=== PATIENT | female | born 1955 | race Two or more races ===

== ENCOUNTER 2016-04-10 15:55 | Emergency (ER) | payer MEDICAID ==
[~2016-04-10] VITALS: Ht 165.1 cm; Wt 68.5 kg
[2016-04-10 16:08] VITALS: BP 95/51
[2016-04-10 16:38] LABS: Basophils # (auto) 0 uL; Basophils % (auto) 0.2 % (0.0-2.0); Eosinophils # (auto) 0.1 uL; Hematocrit 40.2 % (36.0-46.0); Hemoglobin 13.6 g/dL (12.2-16.2); Lymphocytes # (auto) 1.4 uL; Lymphocytes % (auto) 14.4 % (10.0-50.0); Mean Corpuscular Hemoglobin 31.1 pg (28.0-32.0); Mean Corpuscular Hgb Conc. 33.7 g/dL (32.0-36.0); Mean Corpuscular Volume 92.2 fL (80.0-100.0); Mean Platelet Volume 8.6 fL (7.4-10.4); Monocytes # (auto) 0.8 uL; Monocytes % (auto) 8.7 % (0.0-12.0); Neutrophils # (auto) 7.3 uL; Neutrophils % (auto) 75.7 % (37.0-80.0); Platelet Count (auto) 324 10^3/uL (140-450); Red Cell Distribution Width 17.4 % (11.6-16.0); White Blood Cell 9.7 10^3/uL (4.4-10.8)
[2016-04-10 16:59] LABS: Albumin 3.2 g/dL (3.4-5.0); BUN/Creatinine Ratio 17.1; Calcium 8.3 mg/dL (8.5-10.1); Potassium 3.6 mmol/L (3.5-5.1)
[2016-04-10 17:02] LABS: Bilirubin, Total 0.6 mg/dL (0.2-1.0); Total Protein 7.3 g/dL (6.4-8.2)
== END 2016-04-10 21:32 | disposition left against medical advice (07) ==
LOC: ER 16:11
DX: M79.89 Other specified soft tissue disorders (principal); Z53.21 Procedure and treatment not carried out due to patient leaving prior to being seen by health care provider
CPT/HCPCS: 36415; 80053; 83605; 85025; 87040

== ENCOUNTER 2019-11-18 14:17 | Inpatient (IN) | payer MEDICAID, OTHER ==
[~2019-11-18] VITALS: Ht 165.1 cm; Wt 73.0 kg
[2019-11-18] MEDS ORDERED: MORPHINE SULFATE 4 MG/ML SYR/VIAL IV ONE (14:45)
[2019-11-18] MEDS ORDERED: ACETAMINOPHEN 500 MG TAB PO ONE (14:45)
[2019-11-18] MEDS ORDERED: ACETAMINOPHEN 325 MG TAB PO ONE (14:45)
[2019-11-18] MEDS ORDERED: SODIUM CHLORIDE 0.9% 500 ML IV ONE (14:45)
[2019-11-18] MEDS ORDERED: ASCORBIC ACID 500 MG TAB PO ONE (14:45)
[2019-11-18] MEDS ORDERED: ZINC SULFATE 220mg CAP or TAB PO ONE (14:45)
[2019-11-18] MEDS ORDERED: ONDANSETRON HCL 4 MG/2 ML VIAL IV ONE ×2 (14:45)
[2019-11-18] MEDS ORDERED: AZITHROMYCIN 500MG/ 250ML 250 ML IV ONE (14:45)
[2019-11-18 15:30] LABS: Basophils # (auto) 0.1 10 ^3/uL (0-0.2); Basophils % (auto) 0.5 % (0.0-2.0); Eosinophils # (auto) 0 10 ^3/uL (0-0.8); Hematocrit 41.7 % (36.0-46.0); Hemoglobin 14.1 g/dL (12.2-16.2); Lymphocytes # (auto) 0.9 10 ^3/uL (0.4-5.4); Lymphocytes % (auto) 8.1 % (10.0-50.0); Mean Corpuscular Hemoglobin 32.6 pg (28.0-32.0); Mean Corpuscular Hgb Conc. 33.9 g/dL (32.0-36.0); Mean Corpuscular Volume 96.1 fL (80.0-100.0); Monocytes # (auto) 0.9 10 ^3/uL (0-1.3); Monocytes % (auto) 8.3 % (0.0-12.0); Neutrophils # (auto) 8.9 10 ^3/uL (1.6-8.6); Neutrophils % (auto) 83.1 % (37.0-80.0); Nucleated Red Blood Cells % 0.1 %; Platelet Count (auto) 155 10^3/uL (140-450); Red Blood Cells 4.34 10^6/uL (4.0-5.20); Red Cell Distribution Width 14.9 % (11.8-14.3); White Blood Cell 10.7 10^3/uL (4.4-10.8)
[2019-11-18 15:40] LABS: Albumin 3.7 g/dL (3.4-5.0); Anion Gap 8 (5-15); Blood Urea Nitrogen 14 mg/dL (7-18); Calcium 8.7 mg/dL (8.5-10.1); Carbon Dioxide 23 mmol/L (21-32); Chloride 103 mmol/L (98-107); Glucose 271 mg/dL (74-106); Magnesium 2.2 mg/dL (1.6-2.6); Sodium 134 mmol/L (136-145)
[2019-11-18 15:51] LABS: Alanine Aminotransferase 21 U/L (13-56); Alkaline Phosphatase 99 U/L (45-117); Aspartate Aminotransferase 14 U/L (15-37); BUN/Creatinine Ratio 17.7; Bilirubin, Total 0.5 mg/dL (0.2-1.0); GFR African American 94 mL/min; GFR Non-African American 78 mL/min; Lactate Dehydrogenase 233 U/L (84-246); Total Protein 7.8 g/dL (6.4-8.2)
[2019-11-18 17:06] LABS: Urine Bacteria NONE SEEN /hpf (None Seen); Urine Blood TRACE /uL (Negative); Urine Mucus FEW (None Seen); Urine Specific Gravity 1.017 (1.001-1.035); Urine WBC <1 /hpf (0 - 5)
[2019-11-18] MEDS ORDERED: NITROGLYCERIN 0.4 MG SL TAB SL PRN ×2 (18:00→22:30)
[2019-11-18] MEDS ORDERED: MORPHINE SULF INJ 2 MG/ML SYRINGE 1ML IV PRN ×2 (18:00→22:30)
[2019-11-18] MEDS ORDERED: FOLI1TAB6 PO (20:02)
[2019-11-18] MEDS ORDERED: CHOL500023 PO (20:02)
[2019-11-18] MEDS ORDERED: OMEG1CAP59 PO (20:02)
[2019-11-18] MEDS ORDERED: NORT25CA PO (20:02)
[2019-11-18] MEDS ORDERED: LORazepam 0.5 MG TAB PO PRN (22:30)
[2019-11-18] MEDS ORDERED: DEXTROSE (50%) 50ML SYRG IV PRN (22:30)
[2019-11-18] MEDS ORDERED: DOCUSATE SOD 100 MG CAP PO PRN (22:30)
[2019-11-18] MEDS ORDERED: SODIUM CHLORIDE 0.9% 1,000 ML IV SCH (22:30)
[2019-11-18] MEDS ORDERED: THIAMINE 100mg/ml INJ (200mg/2ml VIAL) IV ONE (22:30)
[2019-11-18] MEDS ORDERED: ONDANSETRON HCL 4 MG/2 ML VIAL IV PRN (22:30)
[2019-11-18] MEDS ORDERED: ACETAMINOPHEN 500 MG TAB PO PRN (22:30)
[2019-11-18] MEDS ORDERED: ALUM & MAG HYDROX-SIMETH LIQ(MAALOX) 30 ML PO PRN (22:30)
[2019-11-18] MEDS ORDERED: ACETAMINOPHEN 325 MG TAB PO PRN (22:30)
[2019-11-18] MEDS ORDERED: FOLIC ACID 1 MG TAB PO ONE (22:30)
[2019-11-18 23:05] LABS: Basophils # (auto) 0.1 10 ^3/uL (0-0.2); Basophils % (auto) 0.7 % (0.0-2.0); Eosinophils # (auto) 0 10 ^3/uL (0-0.8); Eosinophils % (auto) 0.1 % (0.0-7.0); Hematocrit 38.4 % (36.0-46.0); Hemoglobin 13.2 g/dL (12.2-16.2); Lymphocytes # (auto) 1.7 10 ^3/uL (0.4-5.4); Mean Corpuscular Hemoglobin 32.9 pg (28.0-32.0); Mean Corpuscular Hgb Conc. 34.5 g/dL (32.0-36.0); Mean Corpuscular Volume 95.4 fL (80.0-100.0); Monocytes % (auto) 10.8 % (0.0-12.0); Neutrophils # (auto) 6.3 10 ^3/uL (1.6-8.6); Neutrophils % (auto) 69.4 % (37.0-80.0); Platelet Count (auto) 206 10^3/uL (140-450); Red Blood Cells 4.02 10^6/uL (4.0-5.20); Red Cell Distribution Width 14.8 % (11.8-14.3); White Blood Cell 9.1 10^3/uL (4.4-10.8)
[2019-11-18] MEDS: MORPHINE SULF INJ 2 MG/ML SYRINGE 1ML IV PRN (23:05)
[2019-11-18 23:23] LABS: Albumin 3.1 g/dL (3.4-5.0); Calcium 8.1 mg/dL (8.5-10.1); Magnesium 2.1 mg/dL (1.6-2.6); Potassium 3.9 mmol/L (3.5-5.1)
[2019-11-18 23:29] LABS: Alcohol, Urine < 3.0 mg/dL (0-10); Amphetamine Screen, Urine NEGATIVE (NEGATIVE); Barbiturate Scree,Urine NEGATIVE (NEGATIVE); Benzodiazephine Screen, Urine NEGATIVE (NEGATIVE); Cannabinoid Screen, Urine NEGATIVE (NEGATIVE); Cocaine Screen, Urine NEGATIVE (NEGATIVE); Opiate Scree,Urine NEGATIVE (NEGATIVE); Phencyclidine Screen, Urine NEGATIVE (NEGATIVE)
[2019-11-18 23:31] LABS: BUN/Creatinine Ratio 13.9; Bilirubin, Total 0.5 mg/dL (0.2-1.0); CRP High Sensitivity 3.13 mg/dL (< 0.3); Total Protein 6.5 g/dL (6.4-8.2)
[2019-11-18 23:51] LABS: Cholesterol 152 mg/dL (< 200)
[2019-11-18 23:55] LABS: HDL Cholesterol 66 mg/dL (40-59); LDL Cholesterol 79 mg/dL (< 100); Triglycerides 57 mg/dL (< 150)
[2019-11-19] VITALS (7 sets, daily range): BP systolic 95–133; BP diastolic 55–76
[2019-11-19] MEDS ORDERED: ALBUTEROL SULF 2.5 MG/0.5ML(0.5%) NEB SOLN NEB PRN (02:45)
--- NOTE | 2019-11-19 04:05 | NUR ---
Telemetry admit from ER Patient admitted to Telemetry unit. Patient oriented to primary RN, unit, room, bed, and unit policies regarding patient care and visiting hours. Patient now on continuous telemetry monitoring, telemetry reading on arrival to unit is sinus rhythm. Patient , weighed by bedscale and encouraged to call if they need something. All questions and concerns addressed, patient verbalized understanding.
[2019-11-19] MEDS: MORPHINE SULF INJ 2 MG/ML SYRINGE 1ML IV PRN (04:19)
[2019-11-19] MEDS ORDERED: ALBUTEROL SULF HFA 90MCG INH 200DOSE IN SCH (06:00)
--- NOTE | 2019-11-19 06:07 | NUR ---
Respiratory note: PT ASSESSED FOR PRN TX HR 65, RR 18, POX 97% ON RA, BS ARE COARSE. NO SOB OR DISTRESS NOTED. PT WAS NOTIFY TO HAVE RN PAGE RT FOR MN TX.
[2019-11-19] MEDS: InsuLIN REG 1unit/0.01ml Soln (100units/ml) SC SCH ×4 (06:34→22:45)
[2019-11-19] MEDS: ACCU-CHEK COMFORT CURVE STRIP VI SCH ×4 (06:34→21:26)
--- NOTE | 2019-11-19 07:20 | NUR ---
End of Shift Note Endorsed care to dayshift RN. At this time patient has no s/s of distress or SOB
--- NOTE | 2019-11-19 07:25 | NUR ---
Opening Shift Note Assumed care of patient, awake and alert x 4. No S/S of distress/SOB. Respirations are even and non labored. Pain reported, medicated as ordered. Henriquez is patent and draining to gravity. Bed is in the lowest and locked position with side rails up x 2 and call light within reach. Instructed on POC and to call for assist PRN, will continue to monitor for changes Q1hr and PRN.
[2019-11-19 07:29] LABS: Basophils # (auto) 0 10 ^3/uL (0-0.2); Basophils % (auto) 0.5 % (0.0-2.0); Eosinophils # (auto) 0 10 ^3/uL (0-0.8); Eosinophils % (auto) 0.5 % (0.0-7.0); Hematocrit 37.8 % (36.0-46.0); Lymphocytes # (auto) 2.1 10 ^3/uL (0.4-5.4); Lymphocytes % (auto) 27.2 % (10.0-50.0); Mean Corpuscular Hemoglobin 32.9 pg (28.0-32.0); Mean Corpuscular Hgb Conc. 34.5 g/dL (32.0-36.0); Mean Corpuscular Volume 95.6 fL (80.0-100.0); Monocytes # (auto) 0.9 10 ^3/uL (0-1.3); Monocytes % (auto) 11.6 % (0.0-12.0); Neutrophils # (auto) 4.5 10 ^3/uL (1.6-8.6); Neutrophils % (auto) 60.2 % (37.0-80.0); Platelet Count (auto) 192 10^3/uL (140-450); Red Blood Cells 3.95 10^6/uL (4.0-5.20); Red Cell Distribution Width 15.1 % (11.8-14.3); White Blood Cell 7.6 10^3/uL (4.4-10.8)
[2019-11-19 07:39] LABS: Albumin 3.1 g/dL (3.4-5.0); Calcium 8.1 mg/dL (8.5-10.1); Potassium 3.6 mmol/L (3.5-5.1)
[2019-11-19 07:42] LABS: BUN/Creatinine Ratio 23.6; Bilirubin, Total 0.6 mg/dL (0.2-1.0); Total Protein 6.6 g/dL (6.4-8.2)
--- NOTE | 2019-11-19 08:38 | NUR ---
Page to hospitalist To notify of chest pain.
--- NOTE | 2019-11-19 08:41 | NUR ---
Received call from hospitalist New orders received.
[2019-11-19] MEDS: cefTRIAXone 1GM/50ML D5W 50 ML IV SCH (09:00)
[2019-11-19] MEDS: HYDROcodone-ACET 5/325MG TAB PO PRN ×3 (09:05→21:26)
[2019-11-19] MEDS: ASCORBIC ACID 1,000 MG TAB PO SCH (10:00)
[2019-11-19] MEDS: DexAMETHasone SOD PHOS 10MG/1ML VIAL INJ IV SCH (10:00)
[2019-11-19] MEDS ORDERED: CHOLECALCIFEROL (VITD3) 2,000 UNIT CAP PO SCH (10:00)
[2019-11-19] MEDS: ZINC SULFATE 220mg CAP or TAB PO SCH (10:00)
[2019-11-19] MEDS ORDERED: BUDESONIDE (INHALATION) 180 MCG IH IN SCH (10:00)
[2019-11-19] MEDS: THIAMINE 100mg/ml INJ (200mg/2ml VIAL) IV SCH (10:01)
[2019-11-19] MEDS: ENOXAPARIN SOD 40 MG/0.4 ML SYRINGE SC SCH (10:02)
[2019-11-19] MEDS: FOLIC ACID 1 MG TAB PO SCH (10:04)
[2019-11-19] MEDS: AZITHROMYCIN 500MG/ 250ML 250 ML IV SCH (10:50)
--- NOTE | 2019-11-19 11:19 | NUR ---
ELFEGO Mustafa at bedside Instructed patient on POC. Notified her of stress test and NPO at midnight and answered all questions.
--- NOTE | 2019-11-19 14:18 | NUR ---
Off unit to Nuc Med
--- NOTE | 2019-11-19 14:52 | NUR ---
Dr. Kenney at bedside Instructed patient on POC with RN to translate. Answered all questions. New orders placed.
[2019-11-19] MEDS: NORTRIPTYLINE HCL 10 MG CAP PO SCH (21:26)
[2019-11-19] MEDS: GABAPENTIN 300 MG CAP PO SCH (21:26)
[2019-11-20 05:00] VITALS: BP 114/66
[2019-11-20 05:48] LABS: Basophils # (auto) 0 10 ^3/uL (0-0.2); Basophils % (auto) 0.6 % (0.0-2.0); Eosinophils # (auto) 0 10 ^3/uL (0-0.8); Eosinophils % (auto) 0.5 % (0.0-7.0); Hematocrit 39.6 % (36.0-46.0); Hemoglobin 13.6 g/dL (12.2-16.2); Lymphocytes # (auto) 1.6 10 ^3/uL (0.4-5.4); Lymphocytes % (auto) 28.2 % (10.0-50.0); Mean Corpuscular Hemoglobin 32.6 pg (28.0-32.0); Mean Corpuscular Hgb Conc. 34.3 g/dL (32.0-36.0); Mean Corpuscular Volume 95.2 fL (80.0-100.0); Monocytes # (auto) 0.7 10 ^3/uL (0-1.3); Monocytes % (auto) 12.1 % (0.0-12.0); Neutrophils # (auto) 3.3 10 ^3/uL (1.6-8.6); Neutrophils % (auto) 58.6 % (37.0-80.0); Nucleated Red Blood Cells % 0.1 %; Platelet Count (auto) 211 10^3/uL (140-450); Red Blood Cells 4.16 10^6/uL (4.0-5.20); Red Cell Distribution Width 14.4 % (11.8-14.3); White Blood Cell 5.6 10^3/uL (4.4-10.8)
[2019-11-20] MEDS: GABAPENTIN 300 MG CAP PO SCH ×4 (06:00→21:50)
[2019-11-20 06:11] LABS: Anion Gap 3 (5-15); Blood Urea Nitrogen 14 mg/dL (7-18); Calcium 8.5 mg/dL (8.5-10.1); Carbon Dioxide 29 mmol/L (21-32); Chloride 106 mmol/L (98-107); Glucose 138 mg/dL (74-106); Potassium 3.8 mmol/L (3.5-5.1); Sodium 138 mmol/L (136-145)
[2019-11-20 06:18] LABS: BUN/Creatinine Ratio 22.6; GFR African American 124 mL/min; GFR Non-African American 103 mL/min
[2019-11-20] MEDS: InsuLIN REG 1unit/0.01ml Soln (100units/ml) SC SCH ×4 (06:38→22:08)
[2019-11-20] MEDS: ACCU-CHEK COMFORT CURVE STRIP VI SCH ×4 (06:38→21:52)
--- NOTE | 2019-11-20 07:16 | NUR ---
End of Shift Note Endorsed care to dayshift RN. At this time patient has no s/s of distress or SOB.
--- NOTE | 2019-11-20 07:30 | NUR ---
Opening Shift Note Assumed care of patient, patient in bed resting with eyes closed. Respirations are even and non labored on room air. No S/S of distress/SOB or pain. Bed is in the lowest/locked position with side rails up x 2 and call light within reach. Will Instruct on POC when awake and alert. Will continue to monitor for changes Q1hr and PRN.
[2019-11-20] MEDS ORDERED: ADENOSINE 59 MG in GIVE UN-DILUTED 0 ML IV STA (08:32)
[2019-11-20 09:00] VITALS: BP 129/72
[2019-11-20] MEDS: cefTRIAXone 1GM/50ML D5W 50 ML IV SCH (09:00)
--- NOTE | 2019-11-20 09:57 | NUR ---
Off unit to [facility] For stress test.
[2019-11-20] MEDS: ENOXAPARIN SOD 40 MG/0.4 ML SYRINGE SC SCH (10:00)
[2019-11-20] MEDS: ZINC SULFATE 220mg CAP or TAB PO SCH (10:00)
[2019-11-20] MEDS: DexAMETHasone SOD PHOS 10MG/1ML VIAL INJ IV SCH (10:00)
[2019-11-20] MEDS: ASCORBIC ACID 1,000 MG TAB PO SCH (10:00)
[2019-11-20] MEDS: AZITHROMYCIN 500MG/ 250ML 250 ML IV SCH (10:00)
[2019-11-20] MEDS: CHOLECALCIFEROL (VITD3) 1,000UNIT=25mCg TAB PO SCH (10:00)
[2019-11-20 13:00] VITALS: BP 111/84
[2019-11-20] MEDS: HYDROcodone-ACET 5/325MG TAB PO PRN ×2 (13:06→22:07)
[2019-11-20] MEDS: FOLIC ACID 1 MG TAB PO SCH (13:06)
[2019-11-20] MEDS: THIAMINE 100mg/ml INJ (200mg/2ml VIAL) IV SCH (13:06)
--- NOTE | 2019-11-20 13:13 | NUR ---
Dr. Kenney at bedside Assessed patient with RN to translate. Explained POC and answered all questions.
[2019-11-20 17:00] VITALS: BP 129/69
--- NOTE | 2019-11-20 19:07 | NUR ---
PT ASSESSED FOR PRN MED NEB TX. SPO2 97% ON RA, HR 70. PT DENIES ANY RESPIRATORY DISTRESS. NO TX INDICATED AT THIS TIME. WILL CONTINUE TO MONITOR.
--- NOTE | 2019-11-20 19:45 | NUR ---
Opening Shift Note Assumed care of patient, awake and alert x 4. No S/S of distress/SOB complain of pain. Henriquez intact flowing per gravity. Tele box matches all leads are in position. Bed lowered and locked side rails x 2 call light and bedside table are within reach. Instructed on POC and to call for assist PRN, will continue to monitor for changes Q1hr and PRN.
[2019-11-20] MEDS: NORTRIPTYLINE HCL 10 MG CAP PO SCH (21:51)
[2019-11-20 22:00] VITALS: BP 110/69
[2019-11-21 05:00] VITALS: BP 119/72
[2019-11-21 06:02] LABS: Calcium 8.4 mg/dL (8.5-10.1); Potassium 3.9 mmol/L (3.5-5.1)
[2019-11-21 06:05] LABS: BUN/Creatinine Ratio 20.6
[2019-11-21] MEDS: ACCU-CHEK COMFORT CURVE STRIP VI SCH ×4 (06:17→21:34)
[2019-11-21] MEDS: GABAPENTIN 300 MG CAP PO SCH ×3 (06:17→21:16)
[2019-11-21] MEDS: HYDROcodone-ACET 5/325MG TAB PO PRN ×2 (06:17→18:42)
[2019-11-21 06:19] LABS: Basophils # (auto) 0 10 ^3/uL (0-0.2); Basophils % (auto) 0.7 % (0.0-2.0); Eosinophils # (auto) 0 10 ^3/uL (0-0.8); Eosinophils % (auto) 0.8 % (0.0-7.0); Hematocrit 38.7 % (36.0-46.0); Lymphocytes # (auto) 1.4 10 ^3/uL (0.4-5.4); Lymphocytes % (auto) 25.8 % (10.0-50.0); Mean Corpuscular Hemoglobin 32.2 pg (28.0-32.0); Mean Corpuscular Hgb Conc. 33.7 g/dL (32.0-36.0); Mean Corpuscular Volume 95.5 fL (80.0-100.0); Monocytes # (auto) 0.7 10 ^3/uL (0-1.3); Monocytes % (auto) 12.5 % (0.0-12.0); Neutrophils # (auto) 3.2 10 ^3/uL (1.6-8.6); Neutrophils % (auto) 60.2 % (37.0-80.0); Platelet Count (auto) 197 10^3/uL (140-450); Red Blood Cells 4.06 10^6/uL (4.0-5.20); Red Cell Distribution Width 14.8 % (11.8-14.3); White Blood Cell 5.3 10^3/uL (4.4-10.8)
[2019-11-21] MEDS: InsuLIN REG 1unit/0.01ml Soln (100units/ml) SC SCH ×4 (06:19→21:51)
--- NOTE | 2019-11-21 07:30 | NUR ---
PT. ASSESSED FOR PRN. MN. TX., NO RESP. DISTRESS OR SOB NOTED. HR=70,RR=18,SP02=96% ON RA. BS. ARE CLEAR , PRN. TX. NOT INDICATED OR GIVE AT THIS TIME. PT. INSTRUCTED TO CALL IF NEEDED.
[2019-11-21 08:00] VITALS: BP 101/60
[2019-11-21 09:18] VITALS: BP 101/60
[2019-11-21] MEDS: THIAMINE 100mg/ml INJ (200mg/2ml VIAL) IV SCH (09:19)
[2019-11-21] MEDS: DexAMETHasone SOD PHOS 10MG/1ML VIAL INJ IV SCH (09:19)
[2019-11-21] MEDS: cefTRIAXone 1GM/50ML D5W 50 ML IV SCH (09:19)
[2019-11-21] MEDS: AZITHROMYCIN 500MG/ 250ML 250 ML IV SCH (09:19)
[2019-11-21] MEDS: ENOXAPARIN SOD 40 MG/0.4 ML SYRINGE SC SCH (09:20)
[2019-11-21] MEDS: ZINC SULFATE 220mg CAP or TAB PO SCH (09:20)
[2019-11-21] MEDS: CHOLECALCIFEROL (VITD3) 1,000UNIT=25mCg TAB PO SCH (09:20)
[2019-11-21] MEDS: FOLIC ACID 1 MG TAB PO SCH (09:20)
[2019-11-21] MEDS: ASCORBIC ACID 1,000 MG TAB PO SCH (10:00)
[2019-11-21 13:00] VITALS: BP 121/63
--- NOTE | 2019-11-21 14:33 | NUR ---
Nutrition Assessment Note please see attached link for complete assessment Est Energy needs BW 71 [id number] kcals (23-25 kcal/kgBW), Est Protein needs: 71-78 gms/day (1.0-1.1 gm/kgBW). Will continue to monitor and reassess prn. Addendum: 11/21/19 at [address] Amended: Links added.
[2019-11-21 17:25] VITALS: BP 112/70
--- NOTE | 2019-11-21 19:53 | NUR ---
Opening Shift Note Assumed care of patient, awake and alert. No S/S of distress/SOB or pain. Instructed on POC and to call for assist PRN, will continue to monitor for changes Q1hr and PRN.
[2019-11-21] MEDS: NORTRIPTYLINE HCL 10 MG CAP PO SCH (21:33)
[2019-11-21 22:00] VITALS: BP 117/66
[2019-11-22 05:00] VITALS: BP 124/86
[2019-11-22] MEDS: GABAPENTIN 300 MG CAP PO SCH ×2 (05:52→15:13)
[2019-11-22] MEDS: ACCU-CHEK COMFORT CURVE STRIP VI SCH ×2 (06:43→11:28)
[2019-11-22] MEDS: InsuLIN REG 1unit/0.01ml Soln (100units/ml) SC SCH ×2 (06:44→11:44)
[2019-11-22 06:53] LABS: Basophils # (auto) 0 10 ^3/uL (0-0.2); Basophils % (auto) 0.1 % (0.0-2.0); Eosinophils # (auto) 0 10 ^3/uL (0-0.8); Hematocrit 39.2 % (36.0-46.0); Hemoglobin 13.2 g/dL (12.2-16.2); Lymphocytes # (auto) 0.8 10 ^3/uL (0.4-5.4); Lymphocytes % (auto) 7.2 % (10.0-50.0); Mean Corpuscular Hemoglobin 31.9 pg (28.0-32.0); Mean Corpuscular Hgb Conc. 33.5 g/dL (32.0-36.0); Monocytes # (auto) 0.4 10 ^3/uL (0-1.3); Monocytes % (auto) 3.8 % (0.0-12.0); Neutrophils % (auto) 88.9 % (37.0-80.0); Platelet Count (auto) 175 10^3/uL (140-450); Red Blood Cells 4.13 10^6/uL (4.0-5.20); Red Cell Distribution Width 14.7 % (11.8-14.3); White Blood Cell 11.3 10^3/uL (4.4-10.8)
[2019-11-22 07:10] LABS: Potassium 4.1 mmol/L (3.5-5.1)
[2019-11-22 07:17] LABS: Albumin 3.2 g/dL (3.4-5.0); Bilirubin, Total 0.2 mg/dL (0.2-1.0); Calcium 9.1 mg/dL (8.5-10.1); Total Protein 7.2 g/dL (6.4-8.2)
--- NOTE | 2019-11-22 07:34 | NUR ---
Report given to Lebron Lane, patient is resting no distress.
--- NOTE | 2019-11-22 07:53 | NUR ---
OPENING SHIFT NOTE: PATIENT RESTING IN BED, ABLE TO AMBULATE TO RESTROOM WITH PERSONAL FWW AT BEDSIDE, WITHOUT ASSISTANCE. PATIENT ESTONIAN SPEAKING THIS RN ABLE TO COMMUNICATE MINIMALLY, GENERAL QUESTIONS AND ADDRESS PAIN/ CONCERNS. UPDATED DAUGHTER ARGENIS ON PLAN OF CARE. CALL LIGHT WITHIN REACH, WILL CONTINUE TO MONITOR.
[2019-11-22 08:59] VITALS: BP 130/58
--- NOTE | 2019-11-22 09:00 | NUR ---
Respiratory note: ASSESSED PT FOR PRN MEDNEB TX. HR 103, RR 18, SPO2 95% ON ROOM AIR. BREATH SOUNDS CLEAR T/O. PT DENIES SOB. NO S/S OF DISTRESS. MEDNEB TX NOT INDICATED AT THIS TIME. PT AWARE TO CALL FOR RT IF NEEDED.
[2019-11-22] MEDS ORDERED: ASCORBIC ACID 500 MG TAB PO SCH (10:00)
[2019-11-22] MEDS: cefTRIAXone 1GM/50ML D5W 50 ML IV SCH (10:29)
[2019-11-22] MEDS: AZITHROMYCIN 500MG/ 250ML 250 ML IV SCH (10:29)
[2019-11-22] MEDS: ENOXAPARIN SOD 40 MG/0.4 ML SYRINGE SC SCH (10:29)
[2019-11-22] MEDS: HYDROcodone-ACET 5/325MG TAB PO PRN (10:30)
--- NOTE | 2019-11-22 10:43 | NUR ---
MALCOLM DC: MALCOLM DISCONTINUED, PER MD OH VERBAL ORDERS AT BEDSIDE WITH RINKU HAIR. 10CC ASPIRATED OUT OF BALLOON. 1100 CLEAR YELLOW URINE NOTED IN MALCOLM BAG ON DC. PATIENT TOLERATED WELL, CATHETER INTACT. PATIENT GIVEN SUPPLIES FOR MANDI-CARE.
[2019-11-22 12:39] VITALS: BP 116/65
[2019-11-22 12:45] VITALS: BP 116/65
[2019-11-22] MEDS ORDERED: LEVO750T8 PO (13:35)
[2019-11-22] MEDS ORDERED: ATOR20TA50 PO (13:36)
[2019-11-22] MEDS ORDERED: METF-489 PO (13:36)
--- NOTE | 2019-11-22 15:14 | NUR ---
FIRST VOID: PATIENT ABLE TO VOID IN TOILET, NO ISSUES POST MALCOLM REMOVAL.
--- NOTE | 2019-11-22 15:56 | NUR ---
DISCHARGE: PATIENT GIVEN ALL EDUCATION MATERIALS AND VERBALIZED UNDERSTANDING. IV'S REMOVED MANUAL PRESSURE APPLIED. TELE RETURNED TO CARDIO UNIT. PATIENT LEFT TO PRIVATE AUTO WITH ALL BELONGINGS WITHOUT INCIDENCE.
== END 2019-11-22 16:10 | disposition home or self-care (01) | DRG 720 ==
LOC: EDBD 14:17 → ER 14:17 → MERGE 14:18 → TELE 14:18 → TELE-WESTW 11-19 04:09
PROVIDERS: ADMIT Internal Medicine; ATTEND Internal Medicine Nephrology
DX: A41.9 Sepsis, unspecified organism (principal); F32.9 Major depressive disorder, single episode, unspecified; E78.5 Hyperlipidemia, unspecified; E87.1 Hypo-osmolality and hyponatremia; E66.9 Obesity, unspecified; Z68.26 Body mass index [BMI] 26.0-26.9, adult; R07.89 Other chest pain; I31.3 Pericardial effusion (noninflammatory); Z20.828 Contact with and (suspected) exposure to other viral communicable diseases; M06.9 Rheumatoid arthritis, unspecified; M19.90 Unspecified osteoarthritis, unspecified site; Z79.4 Long term (current) use of insulin; Z86.73 Personal history of transient ischemic attack (TIA), and cerebral infarction without residual deficits; Z98.51 Tubal ligation status; Z79.899 Other long term (current) drug therapy; Z82.49 Family history of ischemic heart disease and other diseases of the circulatory system; E11.65 Type 2 diabetes mellitus with hyperglycemia; R09.1 Pleurisy
CPT/HCPCS: 36415; 36600; 71045; 78452; 80048; 80053; 80061; 80307; 81001; 82728; 82805; 82962; 83036; 83605; 83615; 83735; 84443; 84484; 85025; 85379; 86141; 87040; 87086; 87426; 93005; 93017; 93306; 93926; 93970; G0378; J0153; J0696; J1100; J1815; J2405